=== PATIENT | male | born 1975 | race Caucasian/White ===

== ENCOUNTER 2017-07-21 08:01 | Emergency (ER) | payer SELFPAY ==
[~2017-07-21] VITALS: Ht 185.4 cm; Wt 136.1 kg
[2017-07-21 08:01] VITALS: BP_SYST 115
[2017-07-21 08:52] VITALS: BP_SYST 118
== END 2017-07-21 08:52 ==
LOC: SED 08:01
DX: F10.129 Alcohol abuse with intoxication, unspecified (principal); F17.200 Nicotine dependence, unspecified, uncomplicated; V49.49XA Driver injured in collision with other motor vehicles in traffic accident, initial encounter; Y93.89 Activity, other specified; Y92.488 Other paved roadways as the place of occurrence of the external cause; Y99.8 Other external cause status
CPT/HCPCS: 99283